=== PATIENT | female | born 1980 | race Caucasian/White ===

== ENCOUNTER → 2016-07-03 | Outpatient (CLI) | payer MEDICAID ==
[~2016-07-03] MED LIST: PRILOSEC40 MG PO; REGLAN5 MG PO
== END | disposition short-term general hospital (02) ==
LOC: CLENT 03:29
DX: J38.2 Nodules of vocal cords (principal); K21.0 Gastro-esophageal reflux disease with esophagitis; E66.3 Overweight; K44.9 Diaphragmatic hernia without obstruction or gangrene; K22.10 Ulcer of esophagus without bleeding; R13.10 Dysphagia, unspecified; Z72.0 Tobacco use